=== PATIENT | male | born 2000 ===

== ENCOUNTER 2023-06-27 06:19 | Day surgery (SDC) | payer BC, SELFPAY ==
[2023-06-27] VITALS (10 sets, daily range): BP systolic 79–119; BP diastolic 51–88; BMI 27.1
[2023-06-27] MEDS: NORMOSOL-R 1000 IV (11:59)
[2023-06-27] MEDS: DILAUDID 0.5 MG IV (16:45)
[2023-06-27] MEDS: DILAUDID 0.25 MG IV (17:19)
== END 2023-06-27 18:00 | disposition home or self-care (01) ==
LOC: SDS 06:19
PROVIDERS: ATTENDING PHYSICIAN Otolaryngology
DX: J35.01 Chronic tonsillitis (principal)
CPT/HCPCS: 42826; 88304